=== PATIENT | male | born 1960 | race American Indian/Alaskan Native ===

== ENCOUNTER 2020-08-22 00:14 | Observation (INO) | payer SELFPAY ==
[2020-08-22] MEDS ORDERED: ASPIRIN 325 MG TAB PO ONE (01:09)
[2020-08-22 01:58] LABS: Basophils % (Auto) 0.5 % (0.0-1.8); Eosinophils % (Auto) 0.5 % (0.0-4.3); Hematocrit 41.3 % (35.5-45.6); Hemoglobin 14.5 gm/dl (11.8-15.2); Lymphocytes # (Auto) 1.9 K/mm3 (1.2-5.4); Lymphocytes % (Auto) 33.8 % (13.4-35.0); Mean Corpuscular HGB Conc 35 % (32-34); Mean Corpuscular Volume 94 fl (84-94); Monocytes # (Auto) 0.6 K/mm3 (0.0-0.8); Monocytes % (Auto) 10.8 % (0.0-7.3); Platelet Count 187 K/mm3 (140-440); Red Cell Distribution Width 13.1 % (13.2-15.2)
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
[2020-08-22 02:18] LABS: BUN/Creatinine Ratio 12; Blood Urea Nitrogen 13 mg/dL (9-20); Hemolysis Index 4
[2020-08-22] MEDS ORDERED: ONDANSETRON 4 MG/2 ML INJ IV ONE (04:30)
[2020-08-22] MEDS ORDERED: MORPHINE 4 MG/1 ML INJ ONE (04:30)
[2020-08-22] MEDS ORDERED: MORPHINE 4 MG/1 ML INJ IV ONE (04:30)
[2020-08-22] MEDS ORDERED: ONDANSETRON 4 MG/2 ML INJ ONE (04:30)
[2020-08-22] MEDS ORDERED: NITROGLYCERIN 0.4 MG TAB SUBL SL ONE (07:54)
[2020-08-22] MEDS ORDERED: MORPHINE 2 MG/1 ML INJ IV ONE (07:54)
--- NOTE | 2020-08-22 07:58 | Emergency Department Report ---
ED Chest Pain HPI - General Chief Complaint: Chest Pain Stated Complaint: CHEST PAIN Time Seen by Provider: 08/22/20 07:42 Source: patient Mode of arrival: Stretcher Limitations: No Limitations - History of Present Illness Initial Comments: 59-year-old male, history of hypertension, diabetes, CAD with 2 stents, presents to ED with chest pain. Patient states pain has been ongoing since last night around 8 PM. States it feels like something is sitting on his chest. Nonradiating. He reports associated nausea and dizziness. Patient denies any shortness of breath, cough, fever. Patient denies any tobacco use. 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 States both stents were placed in [place]. MD Complaint: chest pain -: Last night Onset: during rest Pain Location: substernal Pain Radiation: none Severity: moderate Severity scale (0 -10): 0 Quality: pressure Consistency: constant Improves With: nothing Worsens With: nothing re: nausea Other Symptoms: denies: cough, fever, syncope Treatments Prior to Arrival: aspirin - Related Data Home Medications Medication Instructions Recorded Confirmed Last Taken Atorvastatin [Lipitor Tab] 80 mg PO QHS 08/22/20 08/22/20 Unknown Fenofibrate Nanocrystallized 48 mg PO DAILY 08/22/20 08/22/20 Unknown [Fenofibrate] ISOSORBIDE MONOnitrate [Imdur ER] 60 mg PO QDAY 08/22/20 08/22/20 Unknown Insulin NPH Hum/Reg Insulin Hm 15 unit SQ BID 08/22/20 08/22/20 Unknown [Humulin 70-30 Vial] carvediloL [Coreg] 25 mg PO BID 08/22/20 08/22/20 Unknown glipiZIDE [Glucotrol] 10 mg PO BID 08/22/20 08/22/20 Unknown hydrALAZINE [Apresoline] 25 mg PO TID 08/22/20 08/22/20 Unknown lisinopriL [Zestril TAB] 40 mg PO DAILY 08/22/20 08/22/20 Unknown oxyCODONE /ACETAMINOPHEN 5 mg PO Q6H PRN 08/22/20 08/22/20 Unknown Allergies Allergy/AdvReac Type Severity Reaction Status Date / Time No Known Allergies Allergy Verified 08/22/20 06:46 Heart Score - HEART Score History: Moderately suspicious EKG: Normal Age: 45-65 Risk factors: > 3 risk factors or hx of atherosclerotic disease Troponin: < normal limit HEART Score: 4 ED Review of Systems ROS: Stated complaint: CHEST PAIN Other details as noted in HPI Comment: All other systems reviewed and negative Constitutional: denies: fever Respiratory: denies: shortness of breath Cardiovascular: chest pain Gastrointestinal: nausea ED Past Medical Hx - Past Medical History Previous Medical History?: Yes Hx Hypertension: Yes Hx Heart Attack/AMI: Yes Hx Diabetes: Yes Additional medical history: STEMI. Cataracts - Surgical History Past Surgical History?: Yes Hx Coronary Stent: Yes - Social History Smoking Status: Never Smoker Substance Use Type: None - Medications Home Medications: Home Medications Medication Instructions Recorded Confirmed Last Taken Type Atorvastatin [Lipitor Tab] 80 mg PO QHS 08/22/20 08/22/20 Unknown History Fenofibrate Nanocrystallized 48 mg PO DAILY 08/22/20 08/22/20 Unknown History [Fenofibrate] ISOSORBIDE MONOnitrate [Imdur ER] 60 mg PO QDAY 08/22/20 08/22/20 Unknown History Insulin NPH Hum/Reg Insulin Hm 15 unit SQ BID 08/22/20 08/22/20 Unknown History [Humulin 70-30 Vial] carvediloL [Coreg] 25 mg PO BID 08/22/20 08/22/20 Unknown History glipiZIDE [Glucotrol] 10 mg PO BID 08/22/20 08/22/20 Unknown History hydrALAZINE [Apresoline] 25 mg PO TID 08/22/20 08/22/20 Unknown History lisinopriL [Zestril TAB] 40 mg PO DAILY 08/22/20 08/22/20 Unknown History oxyCODONE /ACETAMINOPHEN 5 mg PO Q6H PRN 08/22/20 08/22/20 Unknown History ED Physical Exam - General Limitations: No Limitations General appearance: alert, in no apparent distress - Head Head exam: Present: atraumatic, normocephalic - Eye Eye exam: Present: normal appearance, EOMI - ENT ENT exam: Present: mucous membranes moist - Neck Neck exam: Present: normal inspection - Respiratory Respiratory exam: Present: normal lung sounds bilaterally. Absent: respiratory distress - Cardiovascular Cardiovascular Exam: Present: regular rate, normal rhythm - GI/Abdominal GI/Abdominal exam: Present: soft. Absent: distended, tenderness - Extremities Exam Extremities exam: Present: normal inspection - Neurological Exam Neurological exam: Present: alert, oriented X3 - Psychiatric Psychiatric exam: Present: normal affect, normal mood - Skin Skin exam: Present: warm, dry, intact, normal color ED Course Vital Signs 08/22/20 08/22/20 08/22/20 01:10 02:12 02:16 Temperature 98.0 F Pulse Rate 68 64 64 Respiratory 20 21 18 Rate Blood Pressure 108/59 Blood Pressure [Left] O2 Sat by Pulse 99 100 95 Oximetry 08/22/20 08/22/20 08/22/20 02:30 02:46 03:00 Temperature Pulse Rate 61 56 L 60 Respiratory 19 21 25 H Rate Blood Pressure Blood Pressure [Left] O2 Sat by Pulse 96 96 92 Oximetry 08/22/20 08/22/20 08/22/20 03:16 03:30 03:46 Temperature Pulse Rate 61 72 56 L Respiratory 30 H 12 17 Rate Blood Pressure 129/92 129/92 Blood Pressure [Left] O2 Sat by Pulse 88 95 98 Oximetry 08/22/20 08/22/20 08/22/20 04:00 04:16 04:30 Temperature Pulse Rate 70 65 60 Respiratory 16 15 24 Rate Blood Pressure 119/92 119/92 119/92 Blood Pressure [Left] O2 Sat by Pulse 96 99 97 Oximetry 08/22/20 08/22/20 08/22/20 04:46 07:06 07:16 Temperature Pulse Rate 62 Respiratory 16 Rate Blood Pressure 119/92 136/81 136/81 Blood Pressure [Left] O2 Sat by Pulse 91 98 90 Oximetry 08/22/20 08/22/20 08/22/20 07:30 07:46 08:00 Temperature Pulse Rate Respiratory Rate Blood Pressure 136/81 119/92 129/72 Blood Pressure [Left] O2 Sat by Pulse 99 99 97 Oximetry 08/22/20 08/22/20 08/22/20 08:16 08:18 08:20 Temperature Pulse Rate 68 Respiratory 18 18 Rate Blood Pressure 129/72 Blood Pressure 129/72 [Left] O2 Sat by Pulse 92 97 97 Oximetry 08/22/20 08/22/20 08/22/20 08:24 08:30 08:46 Temperature Pulse Rate 68 60 69 Respiratory 20 14 Rate Blood Pressure 129/72 104/62 104/62 Blood Pressure 104/62 [Left] O2 Sat by Pulse 99 94 Oximetry 08/22/20 08/22/20 08/22/20 09:00 09:16 09:30 Temperature Pulse Rate 68 64 63 Respiratory 23 24 12 Rate Blood Pressure 104/62 160/68 160/68 Blood Pressure [Left] O2 Sat by Pulse 92 100 98 Oximetry 08/22/20 08/22/20 08/22/20 09:46 10:00 10:16 Temperature Pulse Rate 56 L 55 L 54 L Respiratory 18 11 L 12 Rate Blood Pressure 160/68 160/68 154/67 Blood Pressure [Left] O2 Sat by Pulse 99 99 98 Oximetry 08/22/20 08/22/20 08/22/20 10:30 10:33 10:46 Temperature Pulse Rate 56 L 60 62 Respiratory 11 L 18 27 H Rate Blood Pressure 154/67 154/67 Blood Pressure 154/67 [Left] O2 Sat by Pulse 99 Oximetry 08/22/20 08/22/20 08/22/20 11:00 11:16 11:30 Temperature Pulse Rate 64 64 53 L Respiratory 5 L 18 15 Rate Blood Pressure 156/76 156/76 156/76 Blood Pressure [Left] O2 Sat by Pulse Oximetry 08/22/20 08/22/20 08/22/20 11:50 12:00 12:41 Temperature Pulse Rate 55 L 63 Respiratory 20 Rate Blood Pressure 161/83 161/83 Blood Pressure 156/76 [Left] O2 Sat by Pulse 99 Oximetry 08/22/20 08/22/20 12:42 12:59 Temperature Pulse Rate 63 63 Respiratory Rate Blood Pressure 161/83 Blood Pressure 161/83 [Left] O2 Sat by Pulse Oximetry ED Medical Decision Making - Lab Data Result diagrams: 08/22/20 01:30 08/22/20 01:30 - EKG Data -: EKG Interpreted by [place] EKG shows normal: sinus rhythm, axis, intervals, QRS complexes, ST-T waves Rate: normal, bradycardia (rate 52) - EKG Data Interpretation: no acute changes - Radiology Data Radiology results: report reviewed, image reviewed - Medical Decision Making 59-year-old male with pressure-like chest pain, nausea, and dizziness. History of coronary artery stents x2. EKG is unremarkable, troponin is negative x2. Chest x-ray is normal. Patient reports no ongoing chest pain, repeat EKG is also unremarkable for any ST changes. Morphine and nitroglycerin given. Patient will be admitted by hospitalist for chest pain work-up. - Differential Diagnosis ACS, pneumonia, GERD Critical care attestation.: If time is entered above; I have spent that time in minutes in the direct care of this critically ill patient, excluding procedure time. ED Disposition Clinical Impression: Chest pain Disposition: DC-[id number] OP ADMIT IP TO THIS HOSP Is pt being admited?: Yes Condition: Stable Time of Disposition: 07:59
[2020-08-22] MEDS ORDERED: OXYCODONE PO PRN (09:45)
[2020-08-22] MEDS ORDERED: ACETAMINOPHEN PO PRN (09:45)
[2020-08-22] MEDS ORDERED: LISINOPRIL 20 MG TAB ONE (09:58)
[2020-08-22] MEDS ORDERED: INSULIN NPH/REGULAR 70/30 INJ SUB-Q SCH (10:00)
[2020-08-22] MEDS: CLOPIDOGREL 75 MG TAB PO SCH ×2 (10:01→12:50)
[2020-08-22] MEDS ORDERED: REGADENOSON 0.4 MG/5 ML INJ IV ONE (10:11)
--- NOTE | 2020-08-22 10:17 | History and Physical Report ---
History of Present Illness Date of examination: 08/22/20 Date of admission: 08/22/20 08:00 Chief complaint: chest pain History of present illness: 59-year-old male, history of hypertension, diabetes, CAD with 2 stents, presents to ED with chest pain. Patient states pain has been ongoing since last night around 8 PM. States it feels like something is sitting on his chest. Nonradiating. He reports associated nausea and dizziness. Patient denies any shortness of breath, cough, fever. Patient denies any tobacco use. 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 States both stents were placed in [place]. - Past Medical History Previous Medical History?: Yes Hx Hypertension: Yes Hx Heart Attack/AMI: Yes Hx Diabetes: Yes Additional medical history: STEMI. Cataracts - Surgical History Past Surgical History?: Yes Hx Coronary Stent: Yes - Social History Smoking Status: Never Smoker Substance Use Type: None Review of System: Constitutional: no fever, no chills, no weight loss Ears, eyes, nose, mouth and throat: no nasal congestion, no nasal discharge, no sinus pressure, no vision change, no red eye. Neck: No neck pain or rigidity. Cardiovascular: + chest pain, no orthopnea, no palpitations, no leg swelling Respiratory: No shortness of breath, no cough, no congestion, no wheezing Gastrointestinal: no abdominal pain, no nausea, no vomiting Genitourinary : no dysuria, no hematuria Musculoskeletal: no joint swelling or muscle ache Integumentary: no rash, no pruritis Neurological: no parathesias, no numbness, no tingling Endocrine: no cold or heat intolerance, no polyuria or polydipsia Hematologic/Lymphatic: no easy bruising, no easy bleeding, no gland swelling Allergic/Immunologic: no urticaria, no angioedema. Medications and Allergies Allergies Allergy/AdvReac Type Severity Reaction Status Date / Time No Known Allergies Allergy Verified 08/22/20 06:46 Home Medications Medication Instructions Recorded Confirmed Last Taken Type Atorvastatin [Lipitor Tab] 80 mg PO QHS 08/22/20 08/22/20 Unknown History Fenofibrate Nanocrystallized 48 mg PO DAILY 08/22/20 08/22/20 Unknown History [Fenofibrate] ISOSORBIDE MONOnitrate [Imdur ER] 60 mg PO QDAY 08/22/20 08/22/20 Unknown History Insulin NPH Hum/Reg Insulin Hm 15 unit SQ BID 08/22/20 08/22/20 Unknown History [Humulin 70-30 Vial] carvediloL [Coreg] 25 mg PO BID 08/22/20 08/22/20 Unknown History glipiZIDE [Glucotrol] 10 mg PO BID 08/22/20 08/22/20 Unknown History hydrALAZINE [Apresoline] 25 mg PO TID 08/22/20 08/22/20 Unknown History lisinopriL [Zestril TAB] 40 mg PO DAILY 08/22/20 08/22/20 Unknown History oxyCODONE /ACETAMINOPHEN 5 mg PO Q6H PRN 08/22/20 08/22/20 Unknown History Active Meds: Active Medications Clopidogrel Bisulfate (Clopidogrel 75 Mg Tab) 75 mg PO QDAY [facility] Last Admin: 08/22/20 10:01 Dose: Not Given Documented by: Fenofibrate (Fenofibrate 48 Mg Tab) 48 mg PO DAILY [facility] Insulin Human Isoph/Insulin Regular (Insulin Nph/Regular 70/30 Inj) 15 unit SUB-Q BIDDIAB [facility] Isosorbide Mononitrate (Isosorbide Mononitrate Er 60 Mg Tab) 60 mg PO QDAY [facility] Lisinopril (Lisinopril 40 Mg Tab) 40 mg PO DAILY [facility] Miscellaneous Medication (Atorvastatin [Lipitor]) 80 mg PO QHS [facility] Miscellaneous Medication (Oxycodone /Acetaminophen) 5 mg PO Q6H PRN PRN Reason: Pain , Severe (7-10) Exam - Physical Exam Narrative exam: GENERAL: well-developed and well-nourished lying on bed appeared to be in no discomfort. HEENT: Normocephalic. Atraumatic. No conjunctival congestion or icterus. Patient has moist mucous membranes. NECK: Supple. Trachea midline. CHEST/LUNGS: Clear to auscultated bilaterally, breathing nonlabored. No wheezes crackles or rhonchi. HEART/CARDIOVASCULAR: Regular in rate and rhythm. S1 and S2 positive. ABDOMEN: Abdomen is soft, nontender. Patient has normal bowel sounds. SKIN: There is no rash. Warm and dry. NEURO: No focal motor deficit. Follows command. MUSCULOSKELETAL: No joint effusion or tenderness. EXTRIMITY: No edema, no cyanosis or clubbing. PSYCH: Cooperative. - Constitutional Vitals: Temp Pulse Resp BP Pulse Ox 98.0 F 55 L 11 L 160/68 99 08/22/20 01:10 08/22/20 10:00 08/22/20 10:00 08/22/20 10:00 08/22/20 10:00 HEART Score - HEART Score Troponin: Troponin T < 0.010 ng/mL (0.00-0.029) 08/22/20 08:20 Results - Labs CBC & Chem 7: 08/22/20 01:30 08/22/20 01:30 Labs: Abnormal lab results 08/22/20 08/22/20 Range/Units 01:30 01:30 MCH 33 H (28-32) pg MCHC 35 H (32-34) % RDW 13.1 L (13.2-15.2) % [place] % (Auto) 10.8 H (0.0-7.3) % Glucose 112 H (75-100) mg/dL Assessment and Plan Acute chest pain Hypertension History of coronary artery disease Diabetes mellitus type 2 -- will admit to telemetry bed - monitor with serial CE and EKG - will place on Aspirin, statin - as needed SL NTG and iv morphin for pain - Monitor BP, add betablocker and ACEI if BP tolerates - order 2D echo and stress test in the am - cardiac diet now, NPO after midnight - provide DVT Px with lovenox
[2020-08-22] MEDS: oxyCODONE /ACETAMINOPHEN 5-325MG TAB PO PRN ×2 (11:57→18:04)
--- NOTE | 2020-08-22 12:41 | Consultation ---
<JEAN-CLAUDE BLAIR - Last Filed: 08/22/20 12:36> History of Present Illness Consult date: 08/22/20 Consult reason: chest pain History of present illness: Patient is a 59-year old male who gives a history of coronary artery disease which is usually followed by [facility]. His latest cardiac workup with a stress thallium test was done 2 years ago that showed no ischemia. Left ventricular ejection fraction 50% by an echoardiogram at [facility] 2 months ago. Patient presents to the emergency department with atypical chest pain. Patient reports chest pain following a meal, lying prone associated with nausea. He denies unusual shortness of breath and denies palpitations. Chest x-ray is negative and his ECG is sinus rhythm, no acute ST or T wave changes. Patient has been admitted by the hospitalist service and has been ordered to undergo a stress thallium test. Cardiology consultation has been requested. Past History Past Medical History: CAD, diabetes, hypertension Social history: smoking, other (poly substance abuse) Medications and Allergies Allergies Allergy/AdvReac Type Severity Reaction Status Date / Time No Known Allergies Allergy Verified 08/22/20 06:46 Home Medications Medication Instructions Recorded Confirmed Last Taken Type Atorvastatin [Lipitor Tab] 80 mg PO QHS 08/22/20 08/22/20 Unknown History Fenofibrate Nanocrystallized 48 mg PO DAILY 08/22/20 08/22/20 Unknown History [Fenofibrate] ISOSORBIDE MONOnitrate [Imdur ER] 60 mg PO QDAY 08/22/20 08/22/20 Unknown History Insulin NPH Hum/Reg Insulin Hm 15 unit SQ BID 08/22/20 08/22/20 Unknown History [Humulin 70-30 Vial] carvediloL [Coreg] 25 mg PO BID 08/22/20 08/22/20 Unknown History glipiZIDE [Glucotrol] 10 mg PO BID 08/22/20 08/22/20 Unknown History hydrALAZINE [Apresoline] 25 mg PO TID 08/22/20 08/22/20 Unknown History lisinopriL [Zestril TAB] 40 mg PO DAILY 08/22/20 08/22/20 Unknown History oxyCODONE /ACETAMINOPHEN 5 mg PO Q6H PRN 08/22/20 08/22/20 Unknown History Active Meds: Active Medications Atorvastatin Calcium (Atorvastatin 40 Mg Tab) 80 mg PO QHS [facility] Clopidogrel Bisulfate (Clopidogrel 75 Mg Tab) 75 mg PO QDAY [facility] Last Admin: 08/22/20 10:01 Dose: Not Given Documented by: Fenofibrate (Fenofibrate 48 Mg Tab) 48 mg PO DAILY [facility] Insulin Human Isoph/Insulin Regular (Insulin Nph/Regular 70/30 Inj) 15 unit SUB-Q BIDDIAB [facility] Isosorbide Mononitrate (Isosorbide Mononitrate Er 60 Mg Tab) 60 mg PO QDAY [facility] Lisinopril (Lisinopril 40 Mg Tab) 40 mg PO DAILY [facility] Oxycodone/Acetaminophen (Oxycodone /Acetaminophen 5-325mg Tab) 1 tab PO Q6H PRN PRN Reason: Pain , Severe (7-10) Last Admin: 08/22/20 11:57 Dose: 1 tab Documented by: Review of Systems Cardiovascular: chest pain, no palpitations, no edema, no shortness of breath, no dyspnea on exertion Physical Examination Vital Signs Temp Pulse Resp BP Pulse Ox 98.0 F 68 20 108/59 99 08/22/20 01:10 08/22/20 01:10 08/22/20 01:10 08/22/20 01:10 08/22/20 01:10 General appearance: no acute distress HEENT: Positive: PERRL Neck: Positive: trachea midline Cardiac: Positive: Reg Rate and Rhythm Lungs: Positive: Decreased Breath Sounds Neuro: Positive: Grossly Intact Extremities: Absent: edema Results 08/22/20 01:30 08/22/20 01:30 CBC 08/22/20 Range/Units 01:30 WBC 5.6 (4.5-11.0) K/mm3 RBC 4.40 (3.65-5.03) M/mm3 Hgb 14.5 (11.8-15.2) gm/dl Hct 41.3 (35.5-45.6) % Plt Count 187 (140-440) K/mm3 Lymph # (Auto) 1.9 (1.2-5.4) K/mm3 [place] # (Auto) 0.6 (0.0-0.8) K/mm3 Eos # (Auto) 0.0 (0.0-0.4) K/mm3 Baso # (Auto) 0.0 (0.0-0.1) K/mm3 Comprehensive Metabolic Panel 12/10/20 Range/Units 01:30 Sodium 137 (137-145) mmol/L Potassium 3.6 (3.6-5.0) mmol/L Chloride 100.0 (98-107) mmol/L Carbon Dioxide 27 (22-30) mmol/L BUN 13 (9-20) mg/dL Creatinine 1.1 (0.8-1.3) mg/dL Glucose 112 H (75-100) mg/dL Calcium 9.0 (8.4-10.2) mg/dL Assessment and Plan - Patient Problems (1) Chest pain Current Visit: Yes Status: Acute Plan to address problem: Atypical chest pain Patient gives a history of coronary artery disease which is usually followed by [facility]. His latest cardiac workup with a stress thallium test was done 2 years ago that showed no ischemia. Left ventricular ejection fraction 50% by an echoa rdiogram done at [facility] 2 months ago. Stress thallium test will be done tomorrow. Start trial of Protonix for GERD and atypical chest pain. Resume medical therapy for coronary artery disease. <VALENTIN RIZO - Last Filed: 08/23/20 12:35> History of Present Illness History of present illness: I SAW THIS PT & AGREE WITH THE Dx & Tx PLAN. Medications and Allergies Active Meds: Active Medications Aspirin (Aspirin 81 Mg Tab Chew) 81 mg PO QDAY [facility] Last Admin: 08/23/20 10:13 Dose: 81 mg Documented by: Atorvastatin Calcium (Atorvastatin 40 Mg Tab) 80 mg PO QHS [facility] Last Admin: 08/22/20 21:33 Dose: 80 mg Documented by: Clopidogrel Bisulfate (Clopidogrel 75 Mg Tab) 75 mg PO QDAY [facility] Last Admin: 08/23/20 10:16 Dose: 75 mg Documented by: Fenofibrate (Fenofibrate 48 Mg Tab) 48 mg PO DAILY [facility] Last Admin: 08/23/20 11:03 Dose: 48 mg Documented by: Hydralazine HCl (Hydralazine 25 Mg Tab) 25 mg PO Q8HR [facility] Last Admin: 08/23/20 06:06 Dose: Not Given Documented by: Insulin Human Isoph/Insulin Regular (Insulin Nph/Regular 70/30 Inj) 15 unit SUB-Q BIDDIAB [facility] Last Admin: 08/23/20 10:12 Dose: Not Given Documented by: Isosorbide Mononitrate (Isosorbide Mononitrate Er 60 Mg Tab) 60 mg PO QDAY [facility] Last Admin: 08/23/20 10:13 Dose: 60 mg Documented by: Lisinopril (Lisinopril 40 Mg Tab) 40 mg PO DAILY [facility] Last Admin: 08/23/20 10:15 Dose: 40 mg Documented by: Oxycodone/Acetaminophen (Oxycodone /Acetaminophen 5-325mg Tab) 1 tab PO Q6H PRN PRN Reason: Pain , Severe (7-10) Last Admin: 08/23/20 10:37 Dose: 1 tab Documented by: Pantoprazole Sodium (Pantoprazole 40 Mg Tab) 40 mg PO DAILY@0730 [facility] Last Admin: 08/23/20 07:37 Dose: Not Given Documented by: Physical Examination Vital Signs Temp Pulse Resp BP Pulse Ox 98.0 F 68 20 108/59 99 08/22/20 01:10 08/22/20 01:10 08/22/20 01:10 08/22/20 01:10 08/22/20 01:10 Results 08/22/20 01:30 08/22/20 01:30
[2020-08-22] MEDS: LISINOPRIL 40 MG TAB PO SCH (12:42)
[2020-08-22] MEDS: INSULIN NPH/REGULAR 70/30 INJ SUB-Q SCH ×2 (12:43→18:04)
[2020-08-22] MEDS: PANTOPRAZOLE 40 MG TAB PO SCH (12:46)
[2020-08-22] MEDS: FENOFIBRATE 48 MG TAB PO SCH (12:51)
[2020-08-22 16:47] LABS: Amphetamine Screen,Urine Negative; Benzodiazepines Screen,Urine Negative; Methadone Screen,Urine Negative
[2020-08-22 17:30] LABS: Cannabinoid Screen,Urine Positive; Cocaine Screen,Urine Positive; Opiate Screen,Urine Positive
[2020-08-22] MEDS: hydrALAZINE 25 MG TAB PO SCH (21:33)
[2020-08-22] MEDS ORDERED: NON-FORMULARY EACH (Atorvastatin [Lipitor] 80 MG Tablet) PO SCH (22:00)
[2020-08-23] MEDS: oxyCODONE /ACETAMINOPHEN 5-325MG TAB PO PRN ×2 (00:59→10:37)
[2020-08-23] MEDS: PANTOPRAZOLE 40 MG TAB PO SCH ×2 (06:05→07:37)
[2020-08-23] MEDS: hydrALAZINE 25 MG TAB PO SCH ×2 (06:06→13:56)
[2020-08-23] MEDS ORDERED: REGADENOSON 0.4 MG/5 ML INJ IV ONE (07:15)
--- NOTE | 2020-08-23 09:43 | Progress Note ---
<JEAN-CLAUDE BLAIR - Last Filed: 08/23/20 09:41> Assessment and Plan - Patient Problems (1) Chest pain Current Visit: Yes Status: Acute Plan to address problem: Atypical chest pain Patient gives a history of coronary artery disease which is usually followed by [facility]. His latest cardiac workup with a stress thallium test was done 2 years ago that showed no ischemia. Left ventricular ejection fraction 50% by an echoardiogram done at [facility] [place] 2 months ago. For stress thallium test today, results are pending. Subjective Date of service: 08/23/20 Interval history: For stress thallium test today. Objective Vital Signs Temp Pulse Resp BP BP Pulse Ox 08/23/20 06:06 63 96/55 08/23/20 03:14 98.0 F 63 16 96/55 98 08/23/20 00:59 18 08/22/20 22:59 99.1 F 72 16 120/79 100 08/22/20 21:33 79 119/73 08/22/20 19:45 98.8 F 79 16 119/73 100 08/22/20 17:47 59 L 08/22/20 15:50 97.2 F L 59 L 18 169/97 99 08/22/20 15:20 10 L 131/70 99 08/22/20 15:16 0 L 131/70 97 08/22/20 15:00 13 168/99 100 08/22/20 14:46 0 L 168/99 98 08/22/20 14:30 57 L 25 H 168/99 94 08/22/20 14:16 66 19 168/99 91 08/22/20 14:00 63 18 121/83 94 08/22/20 13:46 57 L 16 121/83 08/22/20 13:30 60 16 121/83 08/22/20 13:16 65 21 121/83 98 08/22/20 13:01 121/83 08/22/20 12:59 63 161/83 08/22/20 12:42 63 161/83 08/22/20 12:41 63 161/83 08/22/20 12:00 161/83 08/22/20 11:50 55 L 20 156/76 99 08/22/20 11:30 53 L 15 156/76 08/22/20 11:16 64 18 156/76 08/22/20 11:00 64 5 L 156/76 08/22/20 10:46 62 27 H 154/67 08/22/20 10:33 60 18 154/67 99 08/22/20 10:30 56 L 11 L 154/67 08/22/20 10:16 54 L 12 154/67 98 08/22/20 10:00 55 L 11 L 160/68 99 08/22/20 09:46 56 L 18 160/68 99 - Physical Examination HEENT: Positive: PERRL Neck: Positive: trachea midline Neuro: Positive: Grossly Intact Extremities: Absent: edema <VALENTIN RIZO Last Filed: 08/23/20 12:35> Subjective Interval history: I SAW THIS PT & AGREE WITH THE Dx & Tx PLAN. Objective Vital Signs Temp Pulse Resp BP BP Pulse Ox 08/23/20 10:15 97.9 F 76 18 172/102 99 08/23/20 10:13 80 172/102 08/23/20 09:24 135/93 08/23/20 09:21 128/89 08/23/20 09:19 117/87 08/23/20 09:18 117/77 08/23/20 09:15 123/72 08/23/20 09:13 145/86 08/23/20 08:57 135/86 08/23/20 08:35 147/100 08/23/20 06:06 63 96/55 08/23/20 03:14 98.0 F 63 16 96/55 98 08/23/20 00:59 18 08/22/20 22:59 99.1 F 72 16 120/79 100 08/22/20 21:33 79 119/73 08/22/20 19:45 98.8 F 79 16 119/73 100 08/22/20 17:47 59 L 08/22/20 15:50 97.2 F L 59 L 18 169/97 99 08/22/20 15:20 10 L 131/70 99 08/22/20 15:16 0 L 131/70 97 08/22/20 15:00 13 168/99 100 08/22/20 14:46 0 L 168/99 98 08/22/20 14:30 57 L 25 H 168/99 94 08/22/20 14:16 66 19 168/99 91 08/22/20 14:00 63 18 121/83 94 08/22/20 13:46 57 L 16 121/83 08/22/20 13:30 60 16 121/83 08/22/20 13:16 65 21 121/83 98 08/22/20 13:01 121/83 08/22/20 12:59 63 161/83 08/22/20 12:42 63 161/83 08/22/20 12:41 63 161/83
[2020-08-23] MEDS ORDERED: ASPIRIN 81 MG TAB CHEW PO SCH (10:00)
[2020-08-23] MEDS: INSULIN NPH/REGULAR 70/30 INJ SUB-Q SCH (10:12)
[2020-08-23] MEDS: LISINOPRIL 40 MG TAB PO SCH (10:15)
[2020-08-23] MEDS: CLOPIDOGREL 75 MG TAB PO SCH (10:16)
[2020-08-23] MEDS: FENOFIBRATE 48 MG TAB PO SCH (11:03)
--- NOTE | 2020-08-23 13:22 | Discharge Summary ---
Providers - Providers Date of Admission: 08/22/20 08:00 Date of discharge: 08/23/20 Attending physician: JAMA HERNANDEZ 08/22/20 09:46 Consult to Physician [CONS] Routine Comment: Consulting Provider: EFRAÍN NG Physician Instructions: Reason For Exam: chest pain Primary care physician: BATTALION [employer]RE CHIEF Hospitalization Condition: Stable Hospital course: Discharge diagnosis: Acute chest pain, likely from cocaine and GERD Hypertension History of coronary artery disease Diabetes mellitus type 2 Cocaine abuse, counselled Disposition: [id number] TO HOME OR SELFCARE Time spent for discharge: 34 minutes Exam - Constitutional Vitals: Temp Pulse Resp BP Pulse Ox 97.9 F 76 18 172/102 99 08/23/20 10:15 08/23/20 10:15 08/23/20 10:15 08/23/20 10:15 08/23/20 10:15 Plan Activity: advance as tolerated Weight Bearing Status: Weight Bear as Tolerated Diet: low fat, low salt Special Instructions: other (Abstinence from drug abuse) Follow up with: OSWALDO FLETCHER MD [Primary Care Provider] - 3-5 Days EFRAÍN NG MD [Staff Physician] - 7 Days Prescriptions: Aspirin [Aspirin BABY CHEW TAB] 81 mg PO QDAY #30 tab.chew carvediloL [Coreg] 25 mg PO BID #60 tablet Pantoprazole [Protonix TAB] 40 mg PO DAILY@0730 #30 tablet
[2020-08-23 13:57] VITALS: BP 133/70
[2020-08-23] MEDS ORDERED: INSULIN REGULAR, HUMAN 100 UNIT/ML 3ML VIAL SUB-Q SCH (16:30)
--- NOTE | 2020-08-27 15:06 | Treadmill Report ---
[facility] STRESS TEST REPORT DATE OF STUDY: 08/24/2020 LEFT VENTRICLE: Left ventricular chamber size is within normal spread. Perfusion study demonstrates a small inferoapical defect associated with extensive GI uptake of the tracer, defect appears mostly fixed. Gated study is suboptimal. CONCLUSION: Small fixed inferoapical defect, appears due to gastrointestinal artifact, no significant ischemia is demonstrated on this study, recommend clinical correlation and echocardiographic reassessment of left ventricular systolic ejection fraction. JOB# [id number] CA/NTS
== END 2020-08-23 16:00 | disposition home or self-care (01) ==
LOC: ED 00:14 → 4A 08:00
PROVIDERS: ADMIT Internal Medicine; ATTEND Internal Medicine
DX: I25.10 Atherosclerotic heart disease of native coronary artery without angina pectoris (principal); I10 Essential (primary) hypertension; E11.9 Type 2 diabetes mellitus without complications; Z98.49 Cataract extraction status, unspecified eye; Z95.1 Presence of aortocoronary bypass graft; Z79.4 Long term (current) use of insulin; Z79.82 Long term (current) use of aspirin; Z79.899 Other long term (current) drug therapy
CPT/HCPCS: 36415; 71045; 78452; 80048; 80307; 82962; 84484; 85025; 93005; 93017; 96372; 99285; A9270; A9502; G0378; J2270; J2405; J2785; J1815